=== PATIENT | male | born 2000 | race Caucasian/White ===

== ENCOUNTER 2020-06-12 21:36 | Emergency (ER) | payer OTHER, SELFPAY ==
[2020-06-12 21:40] VITALS: BP 129/71; PULSE 50; RESP 20; TEMP 36.6; O2SAT 99
--- NOTE | 2020-06-12 22:16 | ED_ITS ---
HPI - Wound/Laceration General Chief Complaint: Wound/Laceration Stated Complaint: LAC Time Seen by Provider: 06/12/20 22:08 History of Present Illness HPI narrative: healthy 19 yo male presents to the ED for a laceration. He reports that he accidentally struck his head on a door in his room at home. He sustained a laceration above his left eye. No LOC, BONILLA, vision change, dizziness, nausea. Related Data Allergies Allergy/AdvReac Type Severity Reaction Status Date / Time No Known Allergies Allergy Unknown Verified 06/12/20 21:43 Review of Systems Review of Systems: All systems reviewed & are unremarkable except as noted in HPI and below PMFSH Past Medical History Medical History (Updated 06/13/20 @ 03:48 by Chris Larios MD) Healthy adult male Social History Social History Smoking status: Never smoker Alcohol intake: never Gender identity (if verbalized by the patient): Male Exam Const: General: no acute distress and alert Orientation/consciousness: kate ent oriented x3 HENMT: Other: 2.5 cm laceration above the left eyebrow Eyes: Conjunctivae: conjunctivae normal Pupils: Equal, round and reactive pupils present EOM: EOMs intact bilaterally Neck: Neck: normal visual inspection Resp: Effort & Inspection: normal respiratory effort Auscultation: clear to auscultation bilaterally Cardio: Rate: regular rate Rhythm: regular rhythm Skin: Wounds: wounds noted Neuro: General: patient oriented x3, moves all extremities, no focal motor deficits and CN's II-XI intact bilaterally Speech: normal speech Gait exam (Neuro): Normal gait present Course Vital Signs Vital signs: Vital Signs Temperature 36.6 C 06/12/20 21:40 Pulse Rate 50 L 06/12/20 21:40 Respiratory Rate 06/12/20 21:40 Blood Pressure 129/71 06/12/20 21:40 Pulse Oximetry 99 06/12/20 21:40 Temperature 36.6 C 06/12/20 21:40 Pulse Rate 50 L 06/12/20 21:40 Respiratory Rate 06/12/20 21:40 Blood Pressure 129/71 06/12/20 21:40 Pulse Oximetry 99 06/12/20 21:40 Procedures Laceration Laceration 1: Date: 06/12/20 Site: face Side (If applicable): left Size (cm): 2.5 Description: linear Depth: simple, single layer Local Anesthetic: lidocaine 2% and with epi Amount of anesthesia used (mL): 3 Pre-repair: irrigated ====== Skin Level ====== Skin layer closed with: other (fast gut) Size (cm): 5-0 Number of sutures: 4 Technique: simple, interrupted ====== Subcutaneous Layer ====== ====== Muscle Layer ====== ====== Tendon Layer ====== Discharge Plan Discharge Clinical Impression: Forehead laceration Patient Disposition: Home, Self-Care Condition: Stable Instructions: Laceration (ED), Care For Your Absorbable Stitches (ED) Follow-up/Referrals: Mark Schwarz MD [Primary Care Provider] -
== END 2020-06-12 23:39 | disposition home or self-care (01) ==
PROVIDERS: Emergency Provider Emergency Medicine; PCP Family Medicine
DX: S01.81XA Laceration without foreign body of other part of head, initial encounter (principal); W22.8XXA Striking against or struck by other objects, initial encounter
CPT/HCPCS: 12011; 99282